=== PATIENT | female | born 1995 | race Caucasian/White ===

== ENCOUNTER 2017-05-15 20:56 | Emergency (ER) | payer OTHER ==
[~2017-05-15] VITALS: Ht 157.4 cm; Wt 77.1 kg
[~2017-05-15 20:56] MED LIST: AMOXICILLIN500 MG PO; CLARITIN10 MG PO; FLAGYL500 MG PO; JULEBER 28 DAY1 EACH PO; KEFLEX500 MG PO; MEDROL DOSEPAK4 MG PO; PEPCID20 MG PO; ZITHROMAX Z PA250 MG PO
[2017-05-15] MEDS ORDERED: LIDEX 0.05% CRE15 GM T (21:19)
== END 2017-05-15 21:31 | disposition home or self-care (01) ==
LOC: ED 20:56
DX: R21 Rash and other nonspecific skin eruption (principal); Z90.49 Acquired absence of other specified parts of digestive tract

== ENCOUNTER 2019-09-29 03:01 | Emergency (ER) | payer OTHER ==
[~2019-09-29] VITALS: Ht 160 cm; Wt 81.6 kg
[~2019-09-29 03:01] MED LIST changes: +LIDEX 0.05% CRE15 GM T
[2019-09-29] MEDS ORDERED: PENICILLIN VK500 MG PO (03:13)
[2019-09-29] MEDS ORDERED: IBUPROFEN IB200 M1 PO (03:14)
[2019-09-29] MEDS ORDERED: NORCO 5-325 TA1 EACH PO (03:14)
[2019-09-29] MEDS ORDERED: PREDNISONE50 MG PO (04:15)
== END 2019-09-29 04:37 | disposition home or self-care (01) ==
LOC: ED 03:01
DX: S93.402A Sprain of unspecified ligament of left ankle, initial encounter (principal); J40 Bronchitis, not specified as acute or chronic; Z79.899 Other long term (current) drug therapy; Z79.2 Long term (current) use of antibiotics; X50.1XXA Overexertion from prolonged static or awkward postures, initial encounter; Y93.89 Activity, other specified; Y92.810 Car as the place of occurrence of the external cause; Y99.8 Other external cause status

== ENCOUNTER → 2020-11-09 | Outpatient (CLI) | payer OTHER ==
[~2020-11-09] MED LIST changes: +IBUPROFEN IB200 M1 PO; +NORCO 5-325 TA1 EACH PO; +PENICILLIN VK500 MG PO; +PREDNISONE50 MG PO
== END | disposition home or self-care (01) ==
LOC: US 15:00
PROVIDERS: ATTEND Obstetrics & Gynecology
DX: Z34.01 Encounter for supervision of normal first pregnancy, first trimester (principal); Z3A.12 12 weeks gestation of pregnancy